=== PATIENT | female | born 2000 | race Caucasian/White ===

== ENCOUNTER 2022-07-02 20:26 | Emergency (ER) | payer OTHER ==
[~2022-07-02] VITALS: Ht 160 cm; Wt 104.3 kg
== END 2022-07-02 22:27 | disposition home or self-care (01) ==
LOC: ED 20:26
DX: O99.891 Other specified diseases and conditions complicating pregnancy (principal); R55 Syncope and collapse; Z88.8 Allergy status to other drugs, medicaments and biological substances; Z3A.16 16 weeks gestation of pregnancy
CPT/HCPCS: 36415; 76815; 80053; 81003; 85025; 86900; 86901; 99284-25

== ENCOUNTER 2022-07-13 19:28 | Emergency (ER) | payer OTHER ==
[~2022-07-13] VITALS: Ht 160 cm; Wt 104.3 kg
--- OUTSIDE RECORDS SUMMARY | 2022-07-13 19:38 | XMS ---
PreManage Notification: PEDRO VILLAGRAN Security House Repairer Events No recent Security Events currently on file CRITERIA MET - - 2 Visits in 30 Days - 6 ED Visits in 6 Months CARE PROVIDERS -Arthur- Dentist: Party Plan Sales Agent [facility] PHONE: [phone] Griffin Yin Community Health Worker 11/30/2020-Current PHONE: [phone] OCHOA PROVIDENCE Party Plan Sales Agent [facility] [employer] PHONE: Unknown Delta Bourne DO Family [facility] Current PHONE: Unknown MARNI VICKERS [facility] Current PHONE: Unknown Care Guidelines exist for the following facilities: [facility] ( 08/26/2016 ) Sharon VISIT COUNT (12 MO.) [address] [place] [address] SHAUNA Adams TOTAL 7 NOTE: Visits indicate total known visits. ED/UCC VISIT TRACKING (12 MO.) 07/13/2022 19:30 SHAUNA Parikh [place] TYPE: Emergency COMPLAINT: - ABD PAIN 07/02/2022 20:26 SHAUNA Parikh [place] TYPE: Emergency COMPLAINT: - NAUSEA DIAGNOSES: - 16 weeks gestation of - Syncope and collapse - Allergy status to other drugs, medicaments and biological substances - Other specified diseases and conditions complicating 04/23/2022 10:59 [facility] [place] TYPE: Emergency COMPLAINT: - FOLLOW UP DIAGNOSES: - FOLLOW UP 04/23/2022 00:53 [employer] [place] TYPE: Emergency DIAGNOSES: - Generalized abdominal pain - ABD PAIN - Less than 8 weeks gestation of 04/20/2022 23:03 [employer] [place] TYPE: Emergency COMPLAINT: - PREG BLEEDING DIAGNOSES: - PREG BLEEDING 03/23/2022 13:12 [employer] [place] TYPE: Emergency DIAGNOSES: - Acute upper respiratory infection, unspecified - CONGESTED, SORE THROAT 11/29/2021 11:14 [employer] [place] TYPE: Emergency DIAGNOSES: - Other chest pain - HIGH BLOOD PRESSURE INPATIENT VISIT TRACKING (12 MO.) No inpatient visits to display in this time frame [email or web address]
== END 2022-07-13 22:39 | disposition home or self-care (01) ==
LOC: ED 19:28
DX: K52.9 Noninfective gastroenteritis and colitis, unspecified (principal); Z88.8 Allergy status to other drugs, medicaments and biological substances
CPT/HCPCS: 36415; 80053; 81001; 83690; 85025; 96360; 96361; 99284-25; A9270; J7121

== ENCOUNTER 2022-12-16 00:02 | Inpatient (IN) | payer OTHER ==
[~2022-12-16] VITALS: Ht 160 cm; Wt 127.5 kg
--- NOTE | ~2022-12-16 | OR ---
[address] [address] [place] DATE OF OPERATION: 12/17/2022 SURGEON: Juan Jose Barrett DO PROCEDURE: Primary low-transverse . CATERPILLAR MECHANIC: Antione Verdugo DO PREOPERATIVE DIAGNOSES: 1. Arrest of dilation. 2. Anxiety. 3. Pseudoseizure disorder. 4. Obesity. 5. 39 weeks' gestation. POSTOPERATIVE DIAGNOSES: 1. Term , delivered. 2. Arrest of dilation. 3. Anxiety. 4. Pseudoseizure disorder. 5. Obesity. ANESTHESIA: Epidural. BLOOD LOSS: 500 mL. COMPLICATIONS: None. FINDINGS: Term viable male in the left occiput anterior position. Interestingly, the baby's head was positioned anterior to pubic bone rather than posterior at the pelvic inlet. The baby weighed 7 pounds 11 ounces with Apgars of 8 and 9 at 1 and 5 minutes, respectively. Normal-appearing bilateral fallopian tubes and ovaries. INDICATIONS: PATIENT NAME: PEDRO VILLAGRAN OPERATIVE REPORT DATE OF : 01 REPORT #: [id number] PHYSICIAN: JUAN JOSE BARRETT DO PCP: JUAN JOSE BARRETT DO REPORT IS CONFIDENTIAL AND NOT TO BE RELEASED WITHOUT AUTHORIZATION [address] [address] [place] The patient is a 22-year-old, G1, P0, who presented initially for elective induction of labor. She received Cytotec, then had spontaneous rupture of membranes, after which time she was 3 cm. Pitocin was started for augmentation. She received an epidural and after making no change despite adequate contractions for 6 hours delivery was recommended. The risks, benefits, and alternatives were discussed and she elected to proceed. DESCRIPTION OF PROCEDURE: The patient was taken back to the operating room, where she was given 3 g Ancef IV and 500 mg azithromycin. Vazquez catheter was already in place and the epidural. Internal monitors were removed. She was prepped and draped in normal sterile fashion including a vaginal prep and she was positioned supine with a leftward tilt. Low-transverse skin incision was made with a scalpel after confirming adequate anesthesia with location of horizontal skin incision approximately 3 cm above Pfannenstiel location due to maternal body habitus and concerns for postoperative healing. Incision was carried down to the underlying layer of fascia with the scalpel. Fascia was nicked in midline, extended laterally with Escobar scissors. An inferior lip of fascia was grasped with Briana clamps, elevated, underlying rectus muscles dissected off bluntly and sharply with Escobar scissors. The inferior margin of fascia was released. Superior margin of fascia was grasped, elevated in the similar fashion. Underlying rectus muscles dissected off bluntly and sharply with Escobar scissors. Peritoneum was entered bluntly and peritoneal incision was extended laterally with digital traction. Eric retractor was placed. Fetus was easily palpable as noted anterior to the pubic bone and hysterotomy was made with a scalpel above the vesicouterine junction. Hysterotomy was entered bluntly. Incision was extended carefully digitally with inferior and superior traction. Clear fluid was noted. 's head was easily grasped and elevated to the hysterotomy, delivered through, followed by anterior-posterior shoulder and remainder of body without any difficulty. Cord was immediately doubly clamped and cut. Baby was handed to waiting nursery team, where he gave a strong spontaneous cry. Cord blood was collected for type and Brandi. Placenta was delivered manually. Uterus was cleared of clots and debris. Stay suture was placed at the right apex and hysterotomy was closed with 0-Monocryl in a double layer closure, first with a running locked fashion, second in an imbricating manner. A serosal rent was noted just superior to the right apex, which was closed with 0-Monocryl in a running locked fashion with excellent hemostasis resulting. The pelvis was suction irrigated with warm sterile saline. Excellent hemostasis was again noted. The peritoneum was closed with 2-0 Vicryl in a running fashion. Rectus muscle was reapproximated at midline with 0-Vicryl in a simple interrupted fashion. Perforating vessels on the rectus muscle were cauterized with Bovie cautery, of note this minimal cautery was required. Fascia was closed with 0-Vicryl in a running fashion working first from right apex to midline, then left apex to midline meeting in the middle. Subcutaneous layer was suction irrigated with warm sterile saline and closed in two layers, first the layer of Mary's fascia, and then more superficially with PATIENT NAME: PEDRO VILLAGRAN OPERATIVE REPORT DATE OF : 01 REPORT #: [id number] PHYSICIAN: JUAN JOSE BARRETT DO PCP: JUAN JOSE BARRETT DO REPORT IS CONFIDENTIAL AND NOT TO BE RELEASED WITHOUT AUTHORIZATION [address] [address] [place] excellent reapproximation of skin. Skin was closed with eladio. Uterus was Crede'd, noted to be firm with minimal clots. Sponge and instrument counts were correct. The patient remained in the operating room for placement of tap blocks per Anesthesia. Juan Jose Barrett DO EMDemetrio/DAYSIL /[id number] Copies: ~ PATIENT NAME: PEDRO VILLAGRAN OPERATIVE REPORT DATE OF : 01 REPORT #: [id number] PHYSICIAN: JUAN JOSE BARRETT DO PCP: JUAN JOSE BARRETT DO REPORT IS CONFIDENTIAL AND NOT TO BE RELEASED WITHOUT AUTHORIZATION
--- OUTSIDE RECORDS SUMMARY | ~2022-12-16 | XMS | Continuity of Care Document ---
Demographics + + + | Address | [address] | | | [place] [address] | + + + | Preferred Language | Unknown | + + + | Marital Status | Never | + + + | Hinduism Affiliation | Unknown | + + + | Race | White | + + + | Ethnic Group | Not or | + + + Author + + + | Author | [facility] | + + + | Organization | [facility] | + + + | Address | [address] | | | [place] [address] | + + + | Phone | | + + + Care Team Providers + + + + | Care Senior Gl Accountant Name | Role | Phone | + + + + Unavailable | Unavailable | + + + + Unavailable | Unavailable | + + + + Unavailable | Unavailable | + + + + Allergies and Intolerances + + + + + + | date | description | facility | reaction | severity | + + + + + + | (no date) | Mild | [facility] | (no reaction) | (no severity) | | [facility] | | | + + + + + + | (no date) | Rash | [facility] | (no reaction) | (no severity) | | [facility] | | | + + + + + + | (no date) | Dimenhydrinate | [facility] | (no reaction) | (no severity) | | [facility] | | | + + + + + + | (no date) | Dimenhydrinate | [facility] | (no reaction) | (no severity) | | [facility] | | | + + + + + + | (no date) | dimenhydrinate | [facility] | (no reaction) | (no severity) | | | | | | | + + + + + + | (no date) | Dimenhydrinate | [facility] | (no reaction) | (no severity) | | [facility] | | | + + + + + + Encounters No information. Functional Status No information. Immunizations No information. Medications No information. Problems + + + + | date | description | facility | + + + + | 2022-05-23 13:09 | [facility] | [facility] | | | NORMAL FIRST PREG, FIRST | | | | TRIMESTER | | + + + + | 2022-05-23 13:09 | LESS THAN 8 WEEKS | [facility] | | | GESTATION OF | | + + + + | 2022-07-02 00:00 | Syncope | [facility] | + + + + | 2022-07-02 00:00 | Syncope | [facility] | + + + + | 2022-07-02 00:00 | 16 weeks gestation of | [facility] | | | | | + + + + | 2022-07-02 00:00 | 16 weeks gestation of | [facility] | | | | | + + + + | 2022-07-02 20:26 | Syncope and collapse | [facility] | + + + + | 2022-07-02 20:26 | 16 WEEKS GESTATION OF | [facility] | | | | | + + + + | 2022-07-02 20:26 | ALLERGY STATUS TO OTH | [facility] | | | DRUG/MEDS/BIOL SUBST STATUS | | | | | | + + + + | 2022-07-13 00:00 | Gastroenteritis | [facility] | + + + + | 2022-07-13 19:30 | NONINFECTIVE | [facility] | | | GASTROENTERITIS AND | | | | COLITIS, UNSPECIF | | + + + + | 2022-07-13 19:30 | NAUSEA WITH VOMITING, | [facility] | | | UNSPECIFIED | | + + + + | 2022-07-13 19:30 | ALLERGY STATUS TO OTH | [facility] | | | DRUG/MEDS/BIOL SUBST STATUS | | | | | | + + + + | 2022-08-14 10:01 | 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[facility] | | | SEIZURES OR CON | | + + + + | 2022-08-14 10:01 | SUPERVISION OF HIGH RISK | [facility] | | | , UNSP, SECOND | | | | TRIMESTER | | + + + + | 2022-08-14 10:01 | OBESITY COMPLICATING | [facility] | | | , SECOND T | | + + + + | 2022-08-14 10:01 | 22 WEEKS GESTATION OF | [facility] | | | | | + + + + | 2022-09-15 18:28 | CHEST PAIN, UNSPECIFIED | [facility] | + + + + | 2022-09-15 18:28 | UNSPECIFIED ABDOMINAL PAIN | [facility] | | | | | + + + + | 2022-09-23 16:39 | PAIN IN LEFT LOWER LEG | [facility] | + + + + | 2022-09-23 16:39 | EDEMA, UNSPECIFIED | [facility] | + + + + | 2022-10-02 00:01 | FALSE LABOR BEFORE 37 | [facility] | | | COMPLETED WEEKS OF GEST, | | | | THIRD TRI | | + + + + | 2022-10-02 00:01 | 28 WEEKS GESTATION OF | [facility] | | | | | + + + + | 2022-10-28 08:00 | OBESITY COMPLICATING | [facility] | | | , SECOND T | | + + + + | 2022-11-22 14:50 | DORSALGIA, UNSPECIFIED | [facility] | + + + + | 2022-11-22 14:50 | 36 WEEKS GESTATION OF | [facility] | | | | | + + + + | 2022-11-25 10:40 | OBESITY COMPLICATING | [facility] | | | , SECOND T | | + + + + | 2022-11-25 10:40 | OBESITY COMPLICATING | [facility] | | | , SECOND TRIMESTER | | | | | | + + + + | 2022-11-25 10:40 | 37 WEEKS GESTATION OF | [facility] | | | | | + + + + | 2022-11-25 11:00 | OBESITY COMPLICATING | [facility] | | | , SECOND T | | + + + + | 2022-12-07 23:08 | DECREASED MOVEMENTS, | [facility] | | | THIRD TRIMESTER, UNSP | | + + + + | 2022-12-07 23:08 | GENERALIZED ABDOMINAL PAIN | [facility] | | | | | + + + + | 2022-12-07 23:08 | 38 WEEKS GESTATION OF | [facility] | | | | | + + + + Procedures No information. Results/Labs +--------+--------+ +---------+--------+---------+ | test | date | facility | value | unit | notes | +--------+--------+ +---------+--------+---------+ + + | Result panel 1 | + + + + + +-------+ + + | | 2022-07-02 | [facility] | 9.8 | (missing) | (missing) | | (unavailable | 20:31:08 [facility] | | | | + + + +-------+ + + + + | Result panel 2 | + + + + + +--------+ + + | | 2022-07-02 | [facility] | 4.34 | (missing) | (missing) | | (unavailable | 20:31:08 [facility] | | | | + + + +--------+ + + + + | Result panel 3 | + + + + + +--------+ + + | | 2022-07-02 | [facility] | 11.7 | (missing) | (missing) | | (unavailable | 20:31:08 [facility] | | | | + + + +--------+ + + + + | Result panel 4 | + + + + + +--------+ + + | | 2022-07-02 | [facility] | 34.9 | (missing) | (missing) | | (unavailable | 20:31:08 [facility] | | | | + + + +--------+ + + + + | Result panel 5 | + + + + + +--------+ + + | | 2022-07-02 | [facility] | 80.3 | (missing) | (missing) | | (unavailable | 20:31:08 [facility] | | | | + + + +--------+ + + + + | Result panel 6 | + + + + + +--------+ + + | | 2022-07-02 | [facility] | 26.9 | (missing) | (missing) | | (unavailable | 20:31:08 [facility] | | | | + + + +--------+ + + + + | Result panel 7 | + + + + + +--------+ + + | | 2022-07-02 | [facility] | 33.5 | (missing) | (missing) | | (unavailable | 20:31:08 [facility] | | | | + + + +--------+ + + + + | Result panel 8 | + + + + + +--------+ + + | | 2022-07-02 | [facility] | 14.3 | (missing) | (missing) | | (unavailable | 20:31:08 [facility] | | | | + + + +--------+ + + + + | Result panel 9 | + + + + + +-------+ + + | | 2022-07-02 | [facility] | 280 | (missing) | (missing) | | (unavailable | 20:31:08 [facility] | | | | + + + +-------+ + + + + | Result panel 10 | + + + + + +--------+ + + | | 2022-07-02 | [facility] | 71.7 | (missing) | (missing) | | (unavailable | 20:31:08 [facility] | | | | + + + +--------+ + + + + | Result panel 11 | + + + + + +--------+ + + | | 2022-07-02 | [facility] | 23.3 | (missing) | (missing) | | (unavailable | 20:31:08 [facility] | | | | + + + +--------+ + + + + | Result panel 12 | + + + + + +-------+ + + | | 2022-07-02 | [facility] | 4.1 | (missing) | (missing) | | (unavailable | 20:31:08 [facility] | | | | + + + +-------+ + + + + | Result panel 13 | + + + + + +-------+ + + | | 2022-07-02 | [facility] | 0.4 | (missing) | (missing) | | (unavailable | 20:31:08 [facility] | | | | + + + +-------+ + + + + | Result panel 14 | + + + + + +-------+ + + | | 2022-07-02 | [facility] | 0.5 | (missing) | (missing) | | (unavailable | 20:31:08 [facility] | | | | + + + +-------+ + + + + | Result panel 15 | + + + + + +------+---------+ + | | 2022-07-02 | [facility] | 92 | mg/dL | (missing) | | (unavailable | 20:31:08 [facility] | | | | + + + +------+---------+ + + + | Result panel 16 | + + + + + +------+---------+ + | | 2022-07-02 | [facility] | 10 | mg/dL | (missing) | | (unavailable | 20:31:08 [facility] | | | | + + + +------+---------+ + + + | Result panel 17 | + + + + + +--------+---------+ + | | 2022-07-02 | [facility] | 0.55 | mg/dL | (missing) | | (unavailable | 20:31:08 [facility] | | | | + + + +--------+---------+ + + + | Result panel 18 | + + + + + +-------+ + + | | 2022-07-02 | [facility] | 134 | (missing) | (missing) | | (unavailable | 20:31:08 [facility] | | | + + + +-------+ + + + + | Result panel 19 | + + + + + +---------+ + + | | 2022-07-02 | [facility] | 18.18 | (missing) | (missing) | | (unavailable | 20:31:08 [facility] | | | | + + + +---------+ + + + + | Result panel 20 | + + + + + +-------+ + + | | 2022-07-02 | [facility] | 137 | (missing) | (missing) | | (unavailable | 20:31:08 [facility] | | | | + + + +-------+ + + + + | Result panel 21 | + + + + + +-------+ + + | | 2022-07-02 | [facility] | 3.6 | (missing) | (missing) | | (unavailable | 20:31:08 [facility] | | | | + + + +-------+ + + + + | Result panel 22 | + + + + + +-------+ + + | | 2022-07-02 | [facility] | 104 | (missing) | (missing) | | (unavailable | 20:31:08 [facility] | | | + + + +-------+ + + + + | Result panel 23 | + + + + + +------+ + + | | 2022-07-02 | [facility] | 24 | (missing) | (missing) | | (unavailable | 20:31:08 [facility] | | | + + + +------+ + + + + | Result panel 24 | + + + + + +--------+ + + | | 2022-07-02 | [facility] | 12.6 | (missing) | (missing) | | (unavailable | 20:31:08 [facility] | | | + + + +--------+ + + + + | Result panel 25 | + + + + + +-------+---------+ + | | 2022-07-02 | [facility] | 9.1 | mg/dL | (missing) | | (unavailable | 20:31:08 [facility] | | | + + + +-------+---------+ + + + | Result panel 26 | + + + + + +-------+ + + | | 2022-07-02 | [facility] | 6.9 | (missing) | (missing) | | (unavailable | 20:31:08 [facility] | | | | + + + +-------+ + + + + | Result panel 27 | + + + + + +-------+ + + | | 2022-07-02 | [facility] | 3.2 | (missing) | (missing) | | (unavailable | 20:31:08 [facility] | | | + + + +-------+ + + + + | Result panel 28 | + + + + + +-------+ + + | | 2022-07-02 | [facility] | 3.7 | (missing) | (missing) | | (unavailable | 20:31:08 [facility] | | | + + + +-------+ + + + + | Result panel 29 | + + + + + +--------+ + + | | 2022-07-02 | [facility] | 0.86 | (missing) | (missing) | | (unavailable | 20:31:08 [facility] | | | + + + +--------+ + + + + | Result panel 30 | + + + + + +-------+ + + | | 2022-07-02 | [facility] | 0.1 | (missing) | (missing) | | (unavailable | 20:31:08 [facility] | | | + + + +-------+ + + + + | Result panel 31 | + + + + + +------+ + + | | 2022-07-02 | [facility] | 13 | (missing) | (missing) | | (unavailable | 20:31:08 [facility] | | | | + + + +------+ + + + + | Result panel 32 | + + + + + +------+ + + | | 2022-07-02 | [facility] | 24 | (missing) | (missing) | | (unavailable | :08 | [facility] | | | | + + + +------+ + + + + | Result panel 33 | + + + + + +------+ + + | | 2022-07-02 | [facility] | 62 | (missing) | (missing) | | (unavailable | 20:31:08 [facility] | | | | + + + +------+ + + + + | Result panel 34 | + + + + + +-----+ + + | | 2022-07-02 | [facility] | A | (missing) | (missing) | | (unavailable | 20:58:08 [facility] | | | | + + + +-----+ + + + + | Result panel 35 | + + + + + + + + + | | 2022-07-02 | [facility] | POSITIVE | (missing) | (missing) | | (unavailable | 20:58:08 [facility] | | | | + + + + + + + + + | Result panel 36 | + + + + + + + + + | | 2022-07-02 | [facility] | POSITIVE | (missing) | (missing) | | (unavailable | 20:58:08 [facility] | | | | + + + + + + + + + | Result panel 37 | + + + + + +-----+ + + | | 2022-07-02 | [facility] | A | (missing) | (missing) | | (unavailable | 20:58:08 [facility] | | | | + + + +-----+ + + + + | Result panel 38 | + + + + + + + + + | | 2022-07-02 | [facility] | YELLOW | (missing) | (missing) | | (unavailable | 21:03:08 [facility] | | | | + + + + + + + + + | Result panel 39 | + + + + + +---------+ + + | | 2022-07-02 | [facility] | CLEAR | (missing) | (missing) | | (unavailable | ::08 | [facility] | | | | + + + +---------+ + + + + | Result panel 40 | + + + + + + + + + | | 2022-07-02 | [facility] | NEGATIVE | (missing) | (missing) | | (unavailable | ::08 | [facility] | | | | + + + + + + + + + | Result panel 41 | + + + + + + + + + | | 2022-07-02 | [facility] | NEGATIVE | (missing) | (missing) | | (unavailable | ::08 | [facility] | | | | + + + + + + + + + | Result panel 42 | + + + + + + + + + | | 2022-07-02 | [facility] | NEGATIVE | (missing) | (missing) | | (unavailable | :08 | [facility] | | | | + + + + + + + + + | Result panel 43 | + + + + + + + + + | | 2022-07-02 | [facility] | >=1.030 | (missing) | (missing) | | (unavailable | 21:03:08 [facility] | | | + + + + + + + + + | Result panel 44 | + + + + + + + + + | | 2022-07-02 | [facility] | NEGATIVE | (missing) | (missing) | | (unavailable | 21:03:08 [facility] | | | | + + + + + + + + + | Result panel 45 | + + + + + +-------+ + + | | 2022-07-02 | [facility] | 6.0 | (missing) | (missing) | | (unavailable | 21::08 | [facility] | | | | + + + +-------+ + + + + | Result panel 46 | + + + + + + + + + | | 2022-07-02 | [facility] | NEGATIVE | (missing) | (missing) | | (unavailable | ::08 | [facility] | | | | + + + + + + + + + | Result panel 47 | + + + + + + + + + | | 2022-07-02 | [facility] | NORMAL | (missing) | (missing) | | (unavailable | 21:03:08 [facility] | | | + + + + + + + + + | Result panel 48 | + + + + + + + + + | | 2022-07-02 | [facility] | NEGATIVE | (missing) | (missing) | | (unavailable | 21:03:08 [facility] | | | | + + + + + + + + + | Result panel 49 | + + + + + + + + + | | 2022-07-02 | [facility] | NEGATIVE | (missing) | (missing) | | (unavailable | 21:03:08 [facility] | | | + + + + + + + + + | Result panel 50 | + + + + + +--------+ + + | | 2022-07-13 | [facility] | 14.6 | (missing) | (missing) | | (unavailable | 19:47:08 [facility] | | | | + + + +--------+ + + + + | Result panel 51 | + + + + + +-------+ + + | | 2022-07-13 | [facility] | 256 | (missing) | (missing) | | (unavailable | 19:47:08 [facility] | | | + + + +-------+ + + + + | Result panel 52 | + + + + + +--------+ + + | | 2022-07-13 | [facility] | 82.8 | (missing) | (missing) | | (unavailable | 19:47:08 [facility] | | | + + + +--------+ + + + + | Result panel 53 | + + + + + +--------+ + + | | 2022-07-13 | [facility] | 14.1 | (missing) | (missing) | | (unavailable | 19:47:08 [facility] | | | + + + +--------+ + + + + | Result panel 54 | + + + + + +-------+ + + | | 2022-07-13 | [facility] | 2.3 | (missing) | (missing) | | (unavailable | 19:47:08 [facility] | | | + + + +-------+ + + + + | Result panel 55 | + + + + + +-------+ + + | | 2022-07-13 | [facility] | 0.4 | (missing) | (missing) | | (unavailable | 19:47:08 [facility] | | | | + + + +-------+ + + + + | Result panel 56 | + + + + + +-------+ + + | | 2022-07-13 | [facility] | 0.4 | (missing) | (missing) | | (unavailable | 19:47:08 [facility] | | | + + + +-------+ + + + + | Result panel 57 | + + + + + +-------+ + + | | 2022-07-13 | [facility] | 8.0 | (missing) | (missing) | | (unavailable | 19:47:08 [facility] | | | + + + +-------+ + + + + | Result panel 58 | + + + + + +------+---------+ + | | 2022-07-13 | [facility] | 92 | mg/dL | (missing) | | (unavailable | 19:47:08 [facility] | | | | + + + +------+---------+ + + + | Result panel 59 | + + + + + +-----+---------+ + | | 2022-07-13 | [facility] | 9 | mg/dL | (missing) | | (unavailable | 19:47:08 [facility] | | | | + + + +-----+---------+ + + + | Result panel 60 | + + + + + +--------+---------+ + | | 2022-07-13 | [facility] | 0.53 | mg/dL | (missing) | | (unavailable | 19:47:08 [facility] | | | | + + + +--------+---------+ + + + | Result panel 61 | + + + + + +-------+ + + | | 2022-07-13 | [facility] | 135 | (missing) | (missing) | | (unavailable | 19:47:08 [facility] | | | + + + +-------+ + + + + | Result panel 62 | + + + + + +---------+ + + | | 2022-07-13 | [facility] | 16.98 | (missing) | (missing) | | (unavailable | 19:47:08 [facility] | | | | + + + +---------+ + + + + | Result panel 63 | + + + + + +-------+ + + | | 2022-07-13 | [facility] | 136 | (missing) | (missing) | | (unavailable | 19:47:08 [facility] | | | + + + +-------+ + + + + | Result panel 64 | + + + + + +--------+ + + | | 2022-07-13 | [facility] | 4.64 | (missing) | (missing) | | (unavailable | 19:47:08 [facility] | | | + + + +--------+ + + + + | Result panel 65 | + + + + + +-------+ + + | | 2022-07-13 | [facility] | 3.6 | (missing) | (missing) | | (unavailable | 19:47:08 [facility] | | | | + + + +-------+ + + + + | Result panel 66 | + + + + + +-------+ + + | | 2022-07-13 | [facility] | 102 | (missing) | (missing) | | (unavailable | 19:47:08 [facility] | | | | + + + +-------+ + + + + | Result panel 67 | + + + + + +------+ + + | | 2022-07-13 | [facility] | 22 | (missing) | (missing) | | (unavailable | 19:47:08 [facility] | | | + + + +------+ + + + + | Result panel 68 | + + + + + +--------+ + + | | 2022-07-13 | [facility] | 15.6 | (missing) | (missing) | | (unavailable | 19:47:08 [facility] | | | + + + +--------+ + + + + | Result panel 69 | + + + + + +-------+---------+ + | | 2022-07-13 | [facility] | 8.9 | mg/dL | (missing) | | (unavailable | 19:47:08 [facility] | | | | + + + +-------+---------+ + + + | Result panel 70 | + + + + + +-------+ + + | | 2022-07-13 | [facility] | 6.8 | (missing) | (missing) | | (unavailable | 19:47:08 [facility] | | | | + + + +-------+ + + + + | Result panel 71 | + + + + + +-------+ + + | | 2022-07-13 | [facility] | 3.1 | (missing) | (missing) | | (unavailable | 19:47:08 [facility] | | | | + + + +-------+ + + + + | Result panel 72 | + + + + + +-------+ + + | | 2022-07-13 | [facility] | 3.7 | (missing) | (missing) | | (unavailable | 19:47:08 [facility] | | | | + + + +-------+ + + + + | Result panel 73 | + + + + + +--------+ + + | | 2022-07-13 | [facility] | 0.84 | (missing) | (missing) | | (unavailable | 19:47:08 [facility] | | | + + + +--------+ + + + + | Result panel 74 | + + + + + +-------+ + + | | 2022-07-13 | [facility] | 0.3 | (missing) | (missing) | | (unavailable | 19:47:08 [facility] | | | + + + +-------+ + + + + | Result panel 75 | + + + + + +--------+ + + | | 2022-07-13 | [facility] | 12.6 | (missing) | (missing) | | (unavailable | 19:47:08 [facility] | | | + + + +--------+ + + + + | Result panel 76 | + + + + + +------+ + + | | 2022-07-13 | [facility] | 17 | (missing) | (missing) | | (unavailable | 19:47:08 [facility] | | | | + + + +------+ + + + + | Result panel 77 | + + + + + +------+ + + | | 2022-07-13 | [facility] | 24 | (missing) | (missing) | | (unavailable | 19:47:08 [facility] | | | + + + +------+ + + + + | Result panel 78 | + + + + + +------+ + + | | 2022-07-13 | [facility] | 70 | (missing) | (missing) | | (unavailable | 19:47:08 [facility] | | | + + + +------+ + + + + | Result panel 79 | + + + + + +------+ + + | | 2022-07-13 | [facility] | 72 | (missing) | (missing) | | (unavailable | 19:47:08 [facility] | | | + + + +------+ + + + + | Result panel 80 | + + + + + +--------+ + + | | 2022-07-13 | [facility] | 37.3 | (missing) | (missing) | | (unavailable | 19:47:08 [facility] | | | + + + +--------+ + + + + | Result panel 81 | + + + + + +--------+ + + | | 2022-07-13 | [facility] | 80.4 | (missing) | (missing) | | (unavailable | 19:47:08 [facility] | | | + + + +--------+ + + + + | Result panel 82 | + + + + + +--------+ + + | | 2022-07-13 | [facility] | 27.2 | (missing) | (missing) | | (unavailable | 19:47:08 [facility] | | | + + + +--------+ + + + + | Result panel 83 | + + + + + +--------+ + + | | 2022-07-13 | [facility] | 33.8 | (missing) | (missing) | | (unavailable | 19:47:08 [facility] | | | + + + +--------+ + + + + | Result panel 84 | + + + + + + + + + | | 2022-07-13 | [facility] | YELLOW | (missing) | (missing) | | (unavailable | 21:29:08 | [facility] | | | | + + + + + + + + + | Result panel 85 | + + + + + +---------+ + + | | 2022-07-13 | [facility] | CLEAR | (missing) | (missing) | | (unavailable | :29:08 | [facility] | | | | + + + +---------+ + + + + | Result panel 86 | + + + + + + + + + | | 2022-07-13 | [facility] | NEGATIVE | (missing) | (missing) | | (unavailable | :29:08 | [facility] | | | | + + + + + + + + + | Result panel 87 | + + + + + + + + + | | 2022-07-13 | [facility] | NEGATIVE | (missing) | (missing) | | (unavailable | :29:08 | [facility] | | | | + + + + + + + + + | Result panel 88 | + + + + + + + + + | | 2022-07-13 | [facility] | NEGATIVE | (missing) | (missing) | | (unavailable | 21:29:08 | [facility] | | | | + + + + + + + + + | Result panel 89 | + + + + + +---------+ + + | | 2022-07-13 | [facility] | 1.020 | (missing) | (missing) | | (unavailable | :29:08 | [facility] | | | | + + + +---------+ + + + + | Result panel 90 | + + + + + + + + + | | 2022-07-13 | [facility] | NEGATIVE | (missing) | (missing) | | (unavailable | 21:29:08 | [facility] | | | | + + + + + + + + + | Result panel 91 | + + + + + +-------+ + + | | 2022-07-13 | [facility] | 6.5 | (missing) | (missing) | | (unavailable | :29:08 | [facility] | | | | + + + +-------+ + + + + | Result panel 92 | + + + + + + + + + | | 2022-07-13 | [facility] | NEGATIVE | (missing) | (missing) | | (unavailable | 21:29:08 | [facility] | | | | + + + + + + + + + | Result panel 93 | + + + + + + + + + | | 2022-07-13 | [facility] | NORMAL | (missing) | (missing) | | (unavailable | 21:29:08 | [facility] | | | | + + + + + + + + + | Result panel 94 | + + + + + + + + + | | 2022-07-13 | [facility] | NEGATIVE | (missing) | (missing) | | (unavailable | 21:29:08 | [facility] | | | | + + + + + + + + + | Result panel 95 | + + + + + +---------+ + + | | 2022-07-13 | [facility] | SMALL | (missing) | (missing) | | (unavailable | 21:29:08 | [facility] | | | | + + + +---------+ + + + + | Result panel 96 | + + + + + +-------+ + + | | 2022-07-13 | [facility] | 0-1 | (missing) | (missing) | | (unavailable | :29:08 | [facility] | | | | + + + +-------+ + + + + | Result panel 97 | + + + + + +-------+ + + | | 2022-07-13 | [facility] | 2-3 | (missing) | (missing) | | (unavailable | :29:08 | [facility] | | | | + + + +-------+ + + + + | Result panel 98 | + + + + + + + + + | | 2022-07-13 | [facility] | SQUAMOUS 2+ | (missing) | (missing) | | (unavailable | :29:08 | [facility] | | | | + + + + + + + + + | Result panel 99 | + + + + + +--------+ + + | | 2022-07-13 | [facility] | RARE | (missing) | (missing) | | (unavailable | :29:08 | [facility] | | | | + + + +--------+ + + + + | Result panel 100 | + + + + + +------+ + + | | 2022-07-13 | [facility] | No | (missing) | (missing) | | (unavailable | 21:29:08 | [facility] | | | | + + + +------+ + + Social History + + + + | date | description | facility | + + + + | 2022-07-02 00:00 | [facility] | + + + + | 2022-07-13 00:00 | Unknown if ever smoked | [facility] | + + + + Vital Signs + + + +---------+ | date | measurement | value | units | + + + +---------+ | 2022-07-02 00:00 | BMI | 40.7 | kg/m2 | + + + +---------+ | 2022-07-02 00:00 | BP_diastolic | 59 | mmHg | + + + +---------+ | 2022-07-02 00:00 | BP_systolic | 115 | mmHg | + + + +---------+ | 2022-07-02 00:00 | heart_rate | 63 | /min | + + + +---------+ | 2022-07-02 00:00 | height_metric | 160.02 | cm | + + + +---------+ | 2022-07-02 00:00 | height_standard | 63 | in | + + + +---------+ | 2022-07-02 00:00 | o2_saturation | 99 | % | + + + +---------+ | 2022-07-02 00:00 | respiration_rate | 16 | /min | + + + +---------+ | 2022-07-02 00:00 | temperature_metric | 37.22 | C | | | | | | + + + +---------+ | 2022-07-02 00:00 | | 99 | F | | | temperature_standar | | | | | d | | | + + + +---------+ | 2022-07-02 00:00 | weight_metric | 104.33 | kg | + + + +---------+ | 2022-07-02 00:00 | weight_standard | 230 | lb | + + + +---------+ | 2022-07-02 00:00 | weight_standard | 230.01 | lb | + + + +---------+ | 2022-07-13 00:00 | BMI | 40.7 | kg/m2 | + + + +---------+ | 2022-07-13 00:00 | BP_diastolic | 71 | mmHg | + + + +---------+ | 2022-07-13 00:00 | BP_systolic | 131 | mmHg | + + + +---------+ | 2022-07-13 00:00 | heart_rate | 96 | /min | + + + +---------+ | 2022-07-13 00:00 | height_metric | 160.02 | cm | + + + +---------+ | 2022-07-13 00:00 | height_standard | 63 | in | + + + +---------+ | 2022-07-13 00:00 | o2_saturation | 98 | % | + + + +---------+ | 2022-07-13 00:00 | respiration_rate | 16 | /min | + + + +---------+ | 2022-07-13 00:00 | temperature_metric | 37 | C | | | | | | + + + +---------+ | 2022-07-13 00:00 | | 98.6 | F | | | temperature_standar | | | | | d | | | + + + +---------+ | 2022-07-13 00:00 | weight_metric | 104.33 | kg | + + + +---------+ | 2022-07-13 00:00 | weight_standard | 230 | lb | + + + +---------+ | 2022-07-13 00:00 | weight_standard | 230.01 | lb | + + + +---------+"
[2022-12-16 00:38] VITALS: BP 141/71
--- NOTE | 2022-12-16 12:12 | PR ---
[facility] [address] [place], [place] [address] Signed Progress Notes IP Datetime Report Generated by CPN: 12/16/2022 12:12 PROGRESS NOTES: [id number] Impression: Reassuring Heart Rate Plan: Continue Present Management VITAL SIGNS: [id number] Vital Signs: Reviewed; Within Normal Limits EXAM: [id number] Dilatation: 1.5 Effacement: 75 Station: -3 Contractions: acontractile MEMBRANES: [id number] Membranes Status: Intact Comments: S/p cytotec x 4, continue cytotec induction. FETUS A: [id number] FHR Baseline: 135 Variability: Moderate 6-25bpm Accelerations: 15X15 Decelerations: None FHR Category: Category I Presentation: Vertex Comments on Fetus A: No evidence of acidemia FETUS B: [id number] Signing Physician: Juan Jose Barrett DO Copies: ~ *Electronically Signed* 12/16/22 1212 JUAN JOSE BARRETT DO PATIENT NAME: PEDRO VILLAGRAN PROGRESS NOTE DATE OF : 01 PHYSICIAN: JUAN JOSE BARRETT DO [facility] [place] #: [id number] REPORT IS CONFIDENTIAL AND NOT TO BE RELEASED WITHOUT AUTHORIZATION
--- NOTE | 2022-12-16 14:45 | PR ---
[facility] [address] [place], [place] [address] Signed Progress Notes IP Datetime Report Generated by CPN: 12/16/2022 14:45 PROGRESS NOTES: [id number] Impression: Reassuring Heart Rate Procedures: Intrauterine Pressure Catheter; Scalp Electrode Plan: Continue Present Management VITAL SIGNS: [id number] Vital Signs: Reviewed; Within Normal Limits EXAM: [id number] Dilatation: 1.5 Effacement: 75 Station: -3 Contractions: acontractile MEMBRANES: [id number] Membranes Status: Ruptured Comments: SROM @ 1225 when up to bathroom. Unable to trace FHR with externals; novi traced contractions but not FHR. Risks/ benefits of internal monitors reviewed. Placed with difficulty due to far anterior cervix. -IV fluid bolus for tachysystole and minimal variability -Discussed presentation concerns with pt; plan for extreme position changes as tolerated by pt and baby FETUS A: [id number] FHR Baseline: 135 Variability: Moderate 6-25bpm Accelerations: 15X15 Decelerations: None FHR Category: Category I Presentation: Vertex Comments on Fetus A: No evidence of acidemia FETUS B: [id number] Signing Physician: Juan Jose Barrett DO Copies: ~ *Electronically Signed* 12/16/22 8380 JUAN JOSE BARRETT DO PATIENT NAME: PEDOR VILLAGRAN PROGRESS NOTE DATE OF : 01 PHYSICIAN: JUAN JOSE BARRETT DO [facility] #: [id number] REPORT IS CONFIDENTIAL AND NOT TO BE RELEASED WITHOUT AUTHORIZATION
--- NOTE | 2022-12-16 16:42 | PR ---
[facility] [address] [facility] [place], [place] [address] Signed Progress Notes IP Datetime Report Generated by CPN: 12/16/2022 16:42 PROGRESS NOTES: [id number] Impression: Reassuring Heart Rate Procedures: Intrauterine Pressure Catheter; Scalp Electrode Plan: Continue Present Management VITAL SIGNS: [id number] Vital Signs: Reviewed; Within Normal Limits EXAM: [id number] Dilatation: 3.0 Effacement: 80 Station: -3 Contractions: acontractile MEMBRANES: [id number] Membranes Status: Ruptured Comments: Progressing, contractions no longer tachysystole since terbutaline, but still adequate. FETUS A: [id number] FHR Baseline: 135 Variability: Moderate 6-25bpm Accelerations: 15X15 Decelerations: None FHR Category: Category I Presentation: Vertex Comments on Fetus A: No evidence of acidemia FETUS B: [id number] Signing Physician: Juan Jose Barrett DO Copies: ~ *Electronically Signed* 12/16/22 1642 JUAN JOSE BARRETT DO PATIENT NAME: PEDRO VILLAGRAN PROGRESS NOTE DATE OF : 01 PHYSICIAN: JUAN JOSE BARRETT DO RPT #: [id number] REPORT IS CONFIDENTIAL AND NOT TO BE RELEASED WITHOUT AUTHORIZATION
--- NOTE | 2022-12-16 18:25 | PR ---
[facility] [address] [facility] [place], [place] [address] Signed Progress Notes IP Datetime Report Generated by CPN: 12/16/2022 18:25 PROGRESS NOTES: [id number] Impression: Reassuring Heart Rate Procedures: Sterile Vag Exam Plan: Continue Present Management VITAL SIGNS: [id number] Vital Signs: Reviewed; Within Normal Limits EXAM: [id number] Dilatation: 3.0 Effacement: 80 Station: -3 Contractions: acontractile MEMBRANES: [id number] Membranes Status: Ruptured Comments: S/p terbutaline 0.25mg subcutaneous @ 1522 for tachysystole Plan recheck in 2h, terbutaline should have worn off that that point. If no further cervical change at that time, anticipate starting pitocin FETUS A: [id number] FHR Baseline: 135 Variability: Moderate 6-25bpm Accelerations: 15X15 Decelerations: None FHR Category: Category I Presentation: Vertex Comments on Fetus A: No evidence of acidemia FETUS B: [id number] Signing Physician: Juan Jose Barrett DO Copies: ~ *Electronically Signed* 12/16/22 1825 JUAN JOSE BARRETT DO PATIENT NAME: PEDRO VILLAGRAN PROGRESS NOTE DATE OF : 01 PHYSICIAN: JUAN JOSE BARRETT DO [facility] #: [id number] REPORT IS CONFIDENTIAL AND NOT TO BE RELEASED WITHOUT AUTHORIZATION
--- NOTE | 2022-12-16 20:22 | PR ---
[facility] [address] [place], [place] [address] Signed Progress Notes IP Datetime Report Generated by CPN: 12/16/2022 20:22 PROGRESS NOTES: [id number] Impression: Reassuring Heart Rate Procedures: Sterile Vag Exam Plan: Augmentation VITAL SIGNS: [id number] Vital Signs: Reviewed; Within Normal Limits EXAM: [id number] Dilatation: 3.0 Effacement: 80 Station: -3 Contractions: acontractile MEMBRANES: [id number] Membranes Status: Ruptured Comments: Discussed current status with patient and her family, present at bedside. Pt agrees contractions have decreased in intensity and frequency. Recommend augmentation with pitocin. Discussed status; concern for intolerance of labor with pitocin. Pt verbalizes understanding. Plan to start low-dose pitocin. If intolerance to labor, we agreed to have a low threshold to discontinue pitocin and deliver via . Questions of patient and her family answered to the best of my ability and she elected to proceed. FETUS A: [id number] FHR Baseline: 135 Variability: Moderate 6-25bpm Accelerations: 15X15 Decelerations: None FHR Category: Category I Presentation: Vertex Comments on Fetus A: No evidence of acidemia FETUS B: [id number] Signing Physician: Juan Jose Barrett DO Copies: ~ *Electronically Signed* 12/16/222021 JUAN JOSE BARRETT DO PATIENT NAME: PEDRO VILLAGRAN PROGRESS NOTE DATE OF : 01 PHYSICIAN: JUAN JOSE BARRETT DO [facility] #: [id number] REPORT IS CONFIDENTIAL AND NOT TO BE RELEASED WITHOUT AUTHORIZATION
--- NOTE | 2022-12-17 00:20 | PR ---
[facility] [address] [facility] [place], [place] [address] Signed Progress Notes IP Datetime Report Generated by CPN: 12/17/2022 00:20 PROGRESS NOTES: [id number] Impression: Reassuring Heart Rate Procedures: Epidural Placement Plan: Augmentation VITAL SIGNS: [id number] Vital Signs: Reviewed; Within Normal Limits EXAM: [id number] Dilatation: 3.0 Effacement: 80 Station: -3 Contractions: acontractile MEMBRANES: [id number] Membranes Status: Ruptured Comments: Pt sitting for epidural, plan cervical check once comfortable FETUS A: [id number] FHR Baseline: 135 Variability: Moderate 6-25bpm Accelerations: 15X15 Decelerations: None FHR Category: Category I Presentation: Vertex Comments on Fetus A: No evidence of acidemia FETUS B: [id number] Signing Physician: Juan Jose Barrett DO Copies: ~ *Electronically Signed* 12/17/22 0020 JUAN JOSE BARRETT DO PATIENT NAME: PEDRO VILLAGRAN PROGRESS NOTE DATE OF : 01 PHYSICIAN: JUAN JOSE BARRETT DO [facility] #: [id number] REPORT IS CONFIDENTIAL AND NOT TO BE RELEASED WITHOUT AUTHORIZATION
--- NOTE | 2022-12-17 01:06 | PR ---
[facility] [address] [place], [place] [address] Signed Progress Notes IP Datetime Report Generated by CPN: 12/17/2022 01:06 PROGRESS NOTES: [id number] Impression: Normal Progression of Labor Procedures: Sterile Vag Exam Plan: Continue Present Management VITAL SIGNS: [id number] Vital Signs: Reviewed; Within Normal Limits EXAM: [id number] Dilatation: 3.0 Effacement: 80 Station: -3 Contractions: acontractile MEMBRANES: [id number] Membranes Status: Ruptured Comments: Epidural taking effect. Reviewed expectations of epidural in case is required - still no progression beyond 3cm. Discussed plan: continue pitocin, contractions currently adequate and will maintain - if no cervical change in 6h with adequate contractions, indicated. Pt verbalizes understanding and desire to continue with pitocin at this time. FETUS A: [id number] FHR Baseline: 135 Variability: Moderate 6-25bpm Accelerations: 15X15 Decelerations: None FHR Category: Category I Presentation: Vertex Comments on Fetus A: No evidence of acidemia FETUS B: [id number] Signing Physician: Juan Jose Barrett DO Copies: ~ *Electronically Signed* 12/17/22 010 JUAN JOSE BARRETT DO PATIENT NAME: PEDRO VILLAGRAN PROGRESS NOTE DATE OF : 01 PHYSICIAN: JUAN JOSE BARRETT #: [id number] REPORT IS CONFIDENTIAL AND NOT TO BE RELEASED WITHOUT AUTHORIZATION
--- NOTE | 2022-12-17 05:31 | PR ---
[facility] [address] [place], [place] [address] Signed Progress Notes IP Datetime Report Generated by CPN: 12/17/2022 05:31 PROGRESS NOTES: [id number] Impression: Arrest of Dilatation/Descent Procedures: Sterile Vag Exam Plan: Deliver- Section Informed Consent Obtain: Section Delivery VITAL SIGNS: [id number] Vital Signs: Reviewed; Within Normal Limits EXAM: [id number] Dilatation: 3.0 Effacement: 80 Station: -3 Contractions: acontractile MEMBRANES: [id number] Membranes Status: Ruptured Comments: No further progression despite adequate contractions on pitocin. Cervix and head still far anterior, despite frequent repositioning. delivery for arrest of dilation is recommended. Risks, benefits, and alternatives discussed with patient and her family, present at bedside. FETUS A: [id number] FHR Baseline: 135 Variability: Moderate 6-25bpm Accelerations: 15X15 Decelerations: None FHR Category: Category I Presentation: Vertex Comments on Fetus A: No evidence of acidemia FETUS B: [id number] Signing Physician: Juan Jose Barrett DO Copies: ~ *Electronically Signed* 12/17/22 0531 JUAN JOSE BARRETT DO PATIENT NAME: PEDRO VILLAGRAN PROGRESS NOTE DATE OF : 01 PHYSICIAN: JUAN JOSE BARRETT #: [id number] REPORT IS CONFIDENTIAL AND NOT TO BE RELEASED WITHOUT AUTHORIZATION
[2022-12-17 07:55] VITALS: BP 130/59
--- NOTE | 2022-12-17 07:57 | NUR ---
12/17/22 0750 Bettie Dyson 3247- PT ARRIVES TO UNIT VIA BED FROM OR. PT RESPIRATIONS ARE EVEN AND UNLABORED, NO SIGNS OF DISTRESS. PT ON RA W/O2 SATS >90% AT THIS TIME. PT IS A&O X4 AND REPORTS NO PAIN OR NAUSEA AT THIS TIME. SISTER IS AT BEDSIDE. VÁSQUEZ DRAINING TO GRAVITY. IV SITE ON LFA IS WNL.
--- NOTE | 2022-12-17 11:31 | NUR ---
MOM IN BED WITH BABY ON CHEST. FAMILY ON COUCH DID NOT INTERACT WITH ME OR MOM. MOM CONSENTED TO PRAYER. PRAYED FOR BLESSING AND PEACE.
--- NOTE | 2022-12-18 01:38 | PR ---
[facility] [address] [facility] [place], [place] [address] Signed PP Progress Notes Datetime Report Generated by NANCY: 12/18/2022 01:37 SUBJECTIVE: [id number] Pain: Within Normal Limits Nausea/Vomiting: Denies Flatus: Yes Bowel Movement: No Vital Signs: [id number] Vital Signs: Reviewed; Within Normal Limits Cardiovascular: Normal Respiratory: Normal Abdomen/Uterus: Normal Extremities: Normal Progress: Normal Exam Comments: NAD, lying in bed holding baby RRR No dyspnea/retractions Abd SNTND, FFBU Ext: SCDs in place BL, neg Marely's BL IMPRESSION/PLAN/PROCEDURES: [id number] Impression: Normal Progression Plan: Continue Present Management Progress Notes: POD#1 s/p PLTCS for arrest of dilation -progressing well postop: tolerating regular diet, ambulating in room with assistance, pain well-controlled with toradol and oxycodone. +Flatus, no BM -randolph in place, anticipate DC later this am continue routine postop care, follow hgb later this am, anticipate randolph removal as above encouraged continued ambulation as tolerated, with abdominal binder if preferred Signing Physician: Juan Jose Barrett DO Copies: ~ *Electronically Signed* 12/18/22 0137 JUAN JOSE BARRETT DO PATIENT NAME: PEDRO VILLAGRAN PROGRESS NOTE DATE OF : 01 PHYSICIAN: JUAN JOSE BARRETT DO [facility] #: [id number] REPORT IS CONFIDENTIAL AND NOT TO BE RELEASED WITHOUT AUTHORIZATION
--- NOTE | 2022-12-18 11:49 | NUR ---
DECLINED VISIT. INDICATED HEADACHE. INFORMED RN.
--- NOTE | 2022-12-19 08:45 | PR ---
[facility] [address] [place], [place] [address] Signed PP Progress Notes Datetime Report Generated by CPN: 12/19/2022 08:45 SUBJECTIVE: [id number] Pain: Within Normal Limits Nausea/Vomiting: Denies Flatus: Yes Bowel Movement: No Vital Signs: [id number] Vital Signs: Reviewed; Within Normal Limits EXAM: Ongoing Cardiovascular: Normal Respiratory: Normal Abdomen/Uterus: Normal Lochia: Normal Extremities: Normal Incision: Normal Progress: Abnormal Exam Comments: NAD, sleeping in chair at bedside RRR No dyspnea/ retractions Abd SNTND, FFBU Incision c/d/i, healing well, eladio in place Ext: 1+ BLLE pitting edema IMPRESSION/PLAN/PROCEDURES: [id number] Impression: Normal Progression Plan: Continue Present Management; Discharge Progress Notes: POD#2 s/p PLTCS -progressing well, planning for DC to home today -ambulating, voiding, tolerating regular diet. Pain well-controlled with orals. Lochia moderate. Does have migraine, responds well to oxycodone. Having difficulty with latch, syringe feeding baby. Reports she does not want contraception. Signing Physician: Neena Barrett DO Copies: ~ *Electronically Signed* 12/19/22 0845 NEENA BARRETT DO PATIENT NAME: PEDRO VILLAGRAN PROGRESS NOTE DATE OF : 01 PHYSICIAN: NEENA BARRETT DO [facility] #: [id number] REPORT IS CONFIDENTIAL AND NOT TO BE RELEASED WITHOUT AUTHORIZATION
--- NOTE | 2022-12-19 13:22 | NUR ---
NURSING STAFF IN ROOM. DID NOT DISTURB. PRAYED SILENT PRAYER FOR GOOD BEGINNINGS AND LASTING PEACE.
== END 2022-12-19 16:20 | disposition home or self-care (01) | DRG 788 ==
LOC: FBC 00:02
PROVIDERS: ADMIT Obstetrics & Gynecology; ATTEND Obstetrics & Gynecology
PROC: 10H07YZ Insertion of Other Device into Products of Conception, Via Natural or Artificial Opening (ICD-10-PCS; 2022-12-16)
PROC: 4A1HXCZ Monitoring of Products of Conception, Cardiac Rate, External Approach (ICD-10-PCS; 2022-12-16)
PROC: 3E0P7VZ Introduction of Hormone into Female Reproductive, Via Natural or Artificial Opening (ICD-10-PCS; 2022-12-16)
PROC: 10D00Z1 Extraction of Products of Conception, Low, Open Approach (ICD-10-PCS; principal; 2022-12-17 06:15)
DX: O99.214 Obesity complicating childbirth (principal); O99.344 Other mental disorders complicating childbirth; Z3A.39 39 weeks gestation of pregnancy; F41.9 Anxiety disorder, unspecified; R56.9 Unspecified convulsions; Z37.0 Single live birth; Z67.10 Type A blood, Rh positive; Z90.89 Acquired absence of other organs; Z98.890 Other specified postprocedural states; Z91.040 Latex allergy status; Z88.8 Allergy status to other drugs, medicaments and biological substances; Z91.013 Allergy to seafood
CPT/HCPCS: 01961; 36415; 64488; 76942; 85027; 86850; 86900; 86901; A9270; J0456; J0690; J1100; J1650; J1885; J2405; J2590; J2795; J3010; J3105; J7121